=== PATIENT | female | born 1970 | race Caucasian/White ===

== ENCOUNTER → 2016-10-07 | Day surgery (SDC) | payer BC, OTHER ==
[~2016-10-07] VITALS: Ht 170.2 cm; Wt 73.9 kg
[~2016-10-07] MED LIST: BUPIVACAINE/EPIN 0.25% 30 ML VIAL As Ordered ONE; FLUO40CA PO; GLYCOPYRROLATE INJ 0.2 MG/ML 2 ML VIAL As Ordered ONE; KETOROLAC 30 MG/ML VIAL (J1885) IV PRN; KETOROLAC 60 MG/2 ML VIAL (J1885) As Ordered ONE; LIDOCAINE 2% INJ 100 MG/5 ML SDV (FOR ANES.) As Ordered ONE; LOW-TAB2 PO; LR 1,000 ML IV SCH; METOCLOPRAMIDE INJ 10MG/2ML VIAL (J2765) IV PRN; MIDAZOLAM INJ 2 MG/2 ML VIAL (J2250) As Ordered ONE; MORPHINE 2 MG/ML 1ML SYRINGE IV PRN; NEOSTIGMINE 1MG/ML 5 ML SYRINGE (J2710) As Ordered ONE; NORCO, ANEXSIA 5/325MG TABLET (HYDROcodone/ACETAMINOPHEN) PO PRN; ONDANSETRON 4MG/2ML VIAL (J2405) As Ordered ONE; ONDANSETRON 4MG/2ML VIAL (J2405) IV PRN; PROPOFOL 200 MG/20 ML VIAL As Ordered ONE; ceFAZolin 1GM INJ (J0690) As Ordered ONE; ePHEDrine SULFATE 25 MG/5 ML(5MG/ML) SYRINGE As Ordered ONE; fentaNYL 100 MCG/2 ML INJECTION (J3010) As Ordered ONE
[2016-10-07 09:41] LABS: CONTROL LINE HCG INT CTR LINE PRESENT
[2016-10-07] MEDS: fentaNYL 100 MCG/2 ML INJECTION (J3010) IV PRN ×2 (12:58→13:25)
[2016-10-07] MEDS: PERCOCET 5MG/325MG TAB PO PRN ×2 (13:03→13:25)
[2016-10-07 15:00] VITALS: BP 108/60
--- NOTE | 2016-10-25 15:29 | RO ---
DATE OF PROCEDURE: 10/07/2016 PREPROCEDURE DIAGNOSIS: Incisional hernia at the umbilicus. POSTPROCEDURE DIAGNOSIS: Incisional hernia and umbilical hernia. PROCEDURE: Repair of umbilical and incisional hernia. SURGEON: Ever Triplett MD ANESTHESIA: General endotracheal anesthesia. ESTIMATED BLOOD LOSS: Minimal. FLUIDS: Crystalloid. DESCRIPTION OF PROCEDURE: The patient was brought to the operating room and was given general anesthesia. After adequate anesthesia and preoperative antibiotics, the patient was prepped and draped in usual sterile fashion. Next, a supraumbilical incision was made over the supraumbilical site. The patient had a previous trocar placed at the supraumbilical site and at this site there seemed to be a hernia and indeed, after dissecting through skin, subcutaneous tissue right at the fascia, there was a small fascial defect with a significant amount of preperitoneal fat coming through this small fascial defect. After further dissection in this area that was just above the umbilicus, it was also apparent that there was a small fascial defect at the umbilicus itself. The fascial defect at the umbilicus was not significantly large i.e. 5-6 mm in size. The umbilicus was transected at its base/the umbilical hernia transected at its base and then closed with a jnoxri-[id number]-jgddh #0 Ethibond suture. Above this was the fascial defect of the incisional hernia. This was a transverse fascial defect and the edges were actually well-approximated, but the length of the fascial defect was about a centimeter. All of this significant amount of fatty tissue was eventually able to be placed back into the peritoneal cavity. I did not transect this fascial/preperitoneal fat or even omentum that was in this area and after reducing this, seeing how small the fascial defect was, I felt comfortable placing two [id number]-fm-[id number] #0 Ethibond sutures in this area to close the fascial defect quite nicely. This approximated quite nicely and then the dermis was brought together with #3-0 Vicryl, #4-0 Vicryl was used to approximate the skin. Steri-Strips and dry sterile dressing was applied. The patient was awakened, extubated, brought to the recovery room awake, alert, hemodynamically stable. Sponge and needle counts correct times two.
== END | disposition home or self-care (01) ==
LOC: M SDC 08:32
PROVIDERS: ATTEND Surgery
DX: K43.2 Incisional hernia without obstruction or gangrene (principal); K42.9 Umbilical hernia without obstruction or gangrene; F41.9 Anxiety disorder, unspecified; F32.9 Major depressive disorder, single episode, unspecified; Z79.899 Other long term (current) drug therapy
CPT/HCPCS: 36415; 49560; 49585; 84703; 88302; J0690; J1885; J2250; J2405; J2710; J3010

== ENCOUNTER → 2016-10-16 | Outpatient (REF) | payer OTHER ==
[~2016-10-16] MED LIST changes: -BUPIVACAINE/EPIN 0.25% 30 ML VIAL As Ordered ONE; -GLYCOPYRROLATE INJ 0.2 MG/ML 2 ML VIAL As Ordered ONE; -KETOROLAC 30 MG/ML VIAL (J1885) IV PRN; -KETOROLAC 60 MG/2 ML VIAL (J1885) As Ordered ONE; -LIDOCAINE 2% INJ 100 MG/5 ML SDV (FOR ANES.) As Ordered ONE; -LR 1,000 ML IV SCH; -METOCLOPRAMIDE INJ 10MG/2ML VIAL (J2765) IV PRN; -MIDAZOLAM INJ 2 MG/2 ML VIAL (J2250) As Ordered ONE; -MORPHINE 2 MG/ML 1ML SYRINGE IV PRN; -NEOSTIGMINE 1MG/ML 5 ML SYRINGE (J2710) As Ordered ONE; -NORCO, ANEXSIA 5/325MG TABLET (HYDROcodone/ACETAMINOPHEN) PO PRN; -ONDANSETRON 4MG/2ML VIAL (J2405) As Ordered ONE; -ONDANSETRON 4MG/2ML VIAL (J2405) IV PRN; -PROPOFOL 200 MG/20 ML VIAL As Ordered ONE; -ceFAZolin 1GM INJ (J0690) As Ordered ONE; -ePHEDrine SULFATE 25 MG/5 ML(5MG/ML) SYRINGE As Ordered ONE; -fentaNYL 100 MCG/2 ML INJECTION (J3010) As Ordered ONE
[2016-10-16 14:21] LABS: ANION GAP 7 MEQ/L (8-16); BLOOD UREA NITROGEN 12 MG/DL (7-18); CALCIUM LEVEL 8.6 MG/DL (8.5-10.1); CARBON DIOXIDE LEVEL 27 MEQ/L (21-32); CHLORIDE LEVEL 105 MEQ/L (98-107); CREATININE FOR GFR 0.78 MG/DL (0.55-1.02); GLOMERULAR FILTRATION RATE > 60.0 (>58); GLUCOSE, FASTING 83 MG/DL (70-105); POTASSIUM SERUM 3.9 MEQ/L (3.5-5.1); SODIUM LEVEL 139 MEQ/L (136-145)
[2016-10-16 14:42] LABS: BASO % 0.3 % (0.0-1.0); EOS % 1.2 % (0.0-3.0); LARGE UNSTAINED CELL # 0.1 K/mm3 (0.0-0.4); LYMPH # 1.3 K/mm3 (1.5-4.5); LYMPH % 28.9 % (24.0-44.0); MEAN CORPUSCULAR HEMOGLOBIN 28.7 pg (27.0-33.0); MEAN CORPUSCULAR HGB CONC 31.8 g/dl (32.0-36.5); MEAN CORPUSCULAR VOLUME 90.2 fl (80.0-96.0); MONO # 0.3 K/mm3 (0.0-0.8); MONO % 6.5 % (0.0-5.0); NEUTROPHILS # 2.7 K/mm3 (1.8-7.7); PLATELET COUNT, AUTOMATED 227 k/mm3 (150-450); WHITE BLOOD COUNT 4.5 K/mm3 (4.0-10.0)
== END ==
LOC: M LABDRAW1 13:58
PROVIDERS: ATTEND Physician Assistant
DX: R05 Cough (principal)

== ENCOUNTER → 2016-11-19 | Outpatient (CLI) | payer BC, OTHER ==
--- NOTE | 2016-11-21 10:59 | SLEEPCENT ---
DATE OF PROCEDURE: 11/19/2016 ORDERED BY: Ivy Tran Nocturnal polysomnography was performed for evaluation of sleep apnea syndrome symptoms in this patient with a history of snoring and daytime somnolence. 7 hours and 32 minutes of data were reviewed. There were 355 minutes of sleep identified. Sleep latency was normal at 13 minutes Rapid eye movement (REM) latency was mildly delayed at 126 minutes. Sleep architecture showed some fragmentation. Overall sleep efficiency was fairly good at 80.2%. There were two to three rapid eye movement (REM) periods appreciated. EKG showed a sinus rhythm with an average heart rate of 56 beats per minute. EEG showed normal wave forms for awake and sleep. There were some fluoxetine related eye movements noted. There were only 13 respiratory events identified of 10 seconds in duration or greater for an apnea-hypopnea index of 2.2. Snoring was noted and respiratory related arousals when arousals from snoring were included occurred 3.5 times per hour. There was some limb activity but arousals were infrequent at 3.4 times per hour and remaining measures of sleep physiology were normal. IMPRESSION Normal nocturnal polysomnography with snoring.
== END ==
LOC: M SLEEP 19:48
PROVIDERS: ATTEND Internal Medicine Pulmonary Disease
DX: G47.30 Sleep apnea, unspecified (principal)

== ENCOUNTER → 2017-04-16 | Outpatient (CLI) | payer BC ==
--- NOTE | 2017-04-16 13:28 | REPMRS ---
Patient History The patient states she had a clinical breast exam in 04/05 Patient had first child at age 32. Family history of prostate cancer in paternal grandfather at age 50 or over and breast cancer in paternal cousin under age 50. Taking hormonal contraceptives for 11 years. Digital Woman Screen Mammo: April 16, 2017 - Exam #: [id number] Bilateral CC and MLO view(s) were taken. Technologist: Edie Solorio, Technologist Prior study comparison: April 03, 2016, digital woman screen mammo performed at [facility]. December 29, 2014, digital woman screen mammo performed at [facility]. FINDINGS: The breast tissue is heterogeneously dense. This may lower the sensitivity of mammography. There has been no change in the appearance of the mammogram from the prior studies. There is a moderate amount of residual fibroglandular tissue which is fairly symmetric. There is no interval development of dominant mass, areas of architectural distortion, or clustered microcalcification typical of malignancy. ASSESSMENT: BI-RADS/ACR category 1 mammogram. Negative. Recommendation Routine screening mammogram in 1 year (for women over age 40). This mammogram was interpreted with the aid of an FDA-approved computer-aided dectection system. Electronically Signed By: Elroy Connolly MD 04/16/17 0036
== END ==
LOC: M WHC 08:36
PROVIDERS: ATTEND Nurse Practitioner Women's Health
DX: Z12.31 Encounter for screening mammogram for malignant neoplasm of breast (principal)

== ENCOUNTER → 2017-04-16 | Outpatient (REF) | payer OTHER | LOC: M SFHCWAGY 08:44 | PROVIDERS: ATTEND Nurse Practitioner Women's Health | DX: Z12.4 Encounter for screening for malignant neoplasm of cervix (principal) ==

== ENCOUNTER → 2017-10-06 | Outpatient (REF) | payer OTHER ==
[2017-10-06 16:25] LABS: BASO % 0.4 % (0.0-1.0); EOS # 0.1 10^3/uL (0.0-0.50); EOS % 1.3 % (0.0-3.0); HEMATOCRIT 37.8 % (36.0-47.0); HEMOGLOBIN 12.4 g/dl (12.0-16.0); IMMATURE GRANULOCYTE % 0.2 % (0-3.0); LYMPH # 1.6 10^3/uL (1.5-4.5); LYMPH % 33.9 % (24.0-44.0); MEAN CORPUSCULAR HEMOGLOBIN 29.3 pg (27.0-33.0); MEAN CORPUSCULAR HGB CONC 32.8 g/dl (32.0-36.5); MEAN CORPUSCULAR VOLUME 89.4 fl (80.0-96.0); MONO # 0.4 10^3/uL (0.0-0.8); MONO % 8.8 % (0.0-5.0); NEUTROPHILS # 2.6 10^3/uL (1.8-7.7); NEUTROPHILS % 55.4 % (36.0-66.0); PLATELET COUNT, AUTOMATED 240 10^3/uL (150-450); RED BLOOD COUNT 4.23 10^6/uL (4.00-5.40); RED CELL DISTRIBUTION WIDTH 12.8 % (11.5-14.5); WHITE BLOOD COUNT 4.8 10^3/uL (4.0-10.0)
[2017-10-06 16:42] LABS: ALBUMIN 3.6 GM/DL (3.2-5.2); ALBUMIN/GLOBULIN RATIO 1.16 (1.00-1.93); ALKALINE PHOSPHATASE 64 U/L (45-117); ALT/SGPT 19 U/L (12-78); ANION GAP 7 MEQ/L (8-16); AST/SGOT 16 U/L (7-37); BILIRUBIN,TOTAL 0.3 MG/DL (0.2-1.0); BLOOD UREA NITROGEN 14 MG/DL (7-18); CALCIUM LEVEL 8.5 MG/DL (8.5-10.1); CARBON DIOXIDE LEVEL 27 MEQ/L (21-32); CHLORIDE LEVEL 110 MEQ/L (98-107); CHOLESTEROL LEVEL 154 MG/DL (<200); CHOLESTEROL RISK RATIO 2.298 (<5); CREATININE FOR GFR 0.77 MG/DL (0.55-1.30); GLOMERULAR FILTRATION RATE > 60.0 (>58); GLUCOSE, FASTING 81 MG/DL (70-100); HDL CHOLESTEROL 67 MG/DL (>40); LDL CHOLESTEROL 75.2 MG/DL (<100); NON-HDL-C 87 MG/DL; POTASSIUM SERUM 4.1 MEQ/L (3.5-5.1); SODIUM LEVEL 144 MEQ/L (136-145); TOTAL PROTEIN 6.7 GM/DL (6.4-8.2); TRIGLYCERIDES LEVEL 59 MG/DL (<150)
== END ==
LOC: M SFHCCAPE 07:03
DX: Z13.6 Encounter for screening for cardiovascular disorders (principal); F32.1 Major depressive disorder, single episode, moderate

== ENCOUNTER → 2018-04-19 | Outpatient (CLI) | payer BC | LOC: M WHC 08:03 | DX: Z12.31 Encounter for screening mammogram for malignant neoplasm of breast (principal) | CPT/HCPCS: 77067 ==

== ENCOUNTER → 2018-04-19 | Outpatient (REF) | payer OTHER | LOC: M SFHCWAGY 08:42 | DX: Z12.4 Encounter for screening for malignant neoplasm of cervix (principal) ==

== ENCOUNTER → 2018-06-01 | Outpatient (REF) | payer OTHER ==
[2018-06-01 16:55] LABS: ALBUMIN 3.4 GM/DL (3.2-5.2); ALBUMIN/GLOBULIN RATIO 1.17 (1.00-1.93); ALKALINE PHOSPHATASE 57 U/L (45-117); ALT/SGPT 21 U/L (12-78); ANION GAP 6 MEQ/L (8-16); AST/SGOT 16 U/L (7-37); BILIRUBIN,TOTAL 0.4 MG/DL (0.2-1.0); BLOOD UREA NITROGEN 11 MG/DL (7-18); CALCIUM LEVEL 8.5 MG/DL (8.5-10.1); CARBON DIOXIDE LEVEL 27 MEQ/L (21-32); CHLORIDE LEVEL 111 MEQ/L (98-107); CREATININE FOR GFR 0.76 MG/DL (0.55-1.30); FREE T4 0.89 NG/DL (0.76-1.46); GLOMERULAR FILTRATION RATE > 60.0 (>58); GLUCOSE, FASTING 83 MG/DL (70-100); POTASSIUM SERUM 4.2 MEQ/L (3.5-5.1); SODIUM LEVEL 144 MEQ/L (136-145); TOTAL PROTEIN 6.3 GM/DL (6.4-8.2)
== END ==
LOC: M SFHCCAPE 07:20
DX: R55 Syncope and collapse (principal)

== ENCOUNTER → 2018-08-14 | Outpatient (REF) | payer OTHER ==
[~2018-08-14] MED LIST changes: +LOW-1TAB2 PO; -LOW-TAB2 PO
[2018-08-14 17:58] LABS: INFLUENZA A AMPLIFICATION POSITIVE (NEGATIVE); INFLUENZA B AMPLIFICATION NEGATIVE (NEGATIVE)
== END ==
LOC: M LAB REF 08:28
PROVIDERS: ATTEND Nurse Practitioner Family
DX: J11.1 Influenza due to unidentified influenza virus with other respiratory manifestations (principal)

== ENCOUNTER → 2018-09-29 | Outpatient (REF) | payer OTHER ==
[2018-09-29 18:10] LABS: BLOOD UREA NITROGEN 11 MG/DL (7-18); CREATININE FOR GFR 0.72 MG/DL (0.55-1.30); GLOMERULAR FILTRATION RATE > 60.0 (>58)
== END ==
LOC: M SFHCCAPE 11:15
PROVIDERS: ATTEND Physician Assistant
DX: R05 Cough (principal)

== ENCOUNTER → 2018-10-11 | Outpatient (CLI) | payer BC, OTHER ==
[~2018-10-11] MED LIST changes: +ISOVUE-370 76% 125ML VIAL (Q9967 PER ML) As Ordered ONE
--- NOTE | 2018-10-11 15:47 | REP ---
Clinical: Chronic cough. Technique: Axial contrast enhanced images from the thoracic inlet to the upper abdomen with coronal and sagittal re-formations using 100 ml Isovue 370 intravenous contrast material. Comparison: 10/16/2016. Findings: The the bilateral lung davis are relatively well aerated, symmetric and essentially clear. No consolidation or pleural effusion. No pneumothorax. No significant evidence for chronic interstitial disease noted. No obvious nodule or mass lesion. No axillary, hilar, or mediastinal adenopathy. A small amount of periaortic soft tissue within the mediastinum (images 36-43) cannot be excluded and is nonspecific. Impression: 1. No evidence for acute or chronic pleuroparenchymal process. No adenopathy. 2. Small amount of periaortic soft tissue within the mediastinum cannot be excluded. Follow-up examination in 3-6 months may be warranted. Electronically Signed by Kermit Patino MD 10/11/2018 03:39 P
== END ==
LOC: M RAD 14:46
PROVIDERS: ATTEND Physician Assistant
DX: R91.8 Other nonspecific abnormal finding of lung field (principal)
CPT/HCPCS: 71260; Q9967

== ENCOUNTER → 2019-02-15 | Outpatient (REF) | payer OTHER ==
[~2019-02-15] MED LIST changes: -ISOVUE-370 76% 125ML VIAL (Q9967 PER ML) As Ordered ONE
[2019-02-16 11:43] LABS: RUBELLA IgG QUALITATIVE IMMUNE (IMMUNE)
[2019-02-17 08:06] LABS: MUMPS VIRUS IgG ANTIBODY <9.0 AU/mL (Immune >10.9); RUBEOLA IgG ANTIBODY <25.0 AU/mL (Immune >29.9)
== END ==
LOC: M SFHCCAPE 07:03
PROVIDERS: ATTEND Physician Assistant
DX: Z78.9 Other specified health status (principal)

== ENCOUNTER → 2019-02-18 | Outpatient (CLI) | payer BC, OTHER ==
[~2019-02-18] MED LIST changes: +ISOVUE-370 76% 100ML VIAL (Q9967) As Ordered ONE
--- NOTE | 2019-02-18 11:12 | REP ---
Clinical: Chronic cough. Technique: Axial contrast enhanced images from the thoracic inlet to the upper abdomen with coronal and sagittal re-formations using 100 ml Isovue 370 intravenous contrast material. Comparison: 10/11/2018. Findings: Bilateral lung davis are relatively well aerated and essentially clear. Very minimal posterior dependent changes are appreciated. No consolidation, significant nodule, or mass lesion. Tracheobronchial tree is patent. No adenopathy. Mediastinum demonstrates normal thoracic aorta, pulmonary vasculature and heart/pericardium. Subtle increased soft tissue in the periaortic middle mediastinum is unchanged and likely represent small amount of residual thymic tissue. Musculoskeletal structures are intact. Limited upper abdomen demonstrates normal bilateral adrenal glands. Impression: 1. No acute mediastinal or pleuroparenchymal process appreciated. 2. Previously noted subtle increased soft tissue in the middle mediastinum is unchanged and may represent small amount of residual thymic tissue. No associated discrete mediastinal or hilar adenopathy. Electronically Signed by Kermit Patino MD 02/18/2019 11:03 A
== END ==
LOC: M RAD 10:23
PROVIDERS: ATTEND Physician Assistant
DX: R05 Cough (principal); R93.89 Abnormal findings on diagnostic imaging of other specified body structures
CPT/HCPCS: 71260; Q9967

== ENCOUNTER → 2019-03-15 | Outpatient (REF) | payer OTHER ==
[~2019-03-15] MED LIST changes: -ISOVUE-370 76% 100ML VIAL (Q9967) As Ordered ONE
[2019-03-15 16:47] LABS: BASO % 0.5 % (0.0-1.0); EOS # 0.1 10^3/uL (0.0-0.50); EOS % 1.7 % (0.0-3.0); HEMATOCRIT 38.8 % (36.0-47.0); HEMOGLOBIN 12.6 g/dl (12.0-15.5); LYMPH # 1.4 10^3/uL (1.5-4.5); LYMPH % 33.7 % (24.0-44.0); MEAN CORPUSCULAR HGB CONC 32.5 g/dl (32.0-36.5); MEAN CORPUSCULAR VOLUME 89.2 fl (80.0-96.0); MONO # 0.4 10^3/uL (0.0-0.8); MONO % 9.2 % (0.0-5.0); NEUTROPHILS # 2.2 10^3/uL (1.8-7.7); NEUTROPHILS % 54.7 % (36.0-66.0); PLATELET COUNT, AUTOMATED 276 10^3/uL (150-450); RED BLOOD COUNT 4.35 10^6/uL (4.00-5.40)
[2019-03-15 17:00] LABS: ALBUMIN 3.7 GM/DL (3.2-5.2); ALT/SGPT 20 U/L (12-78); BILIRUBIN,TOTAL 0.4 MG/DL (0.2-1.0); BLOOD UREA NITROGEN 11 MG/DL (7-18); CALCIUM LEVEL 8.7 MG/DL (8.5-10.1); CARBON DIOXIDE LEVEL 25 MEQ/L (21-32); CHLORIDE LEVEL 107 MEQ/L (98-107); CREATININE FOR GFR 0.76 MG/DL (0.55-1.30); FREE T4 0.92 NG/DL (0.76-1.46); GLOMERULAR FILTRATION RATE > 60.0 (>58); GLUCOSE, FASTING 78 MG/DL (70-100); LDH LACTATE DEHYDROGENASE 188 U/L (84-246); POTASSIUM SERUM 4.1 MEQ/L (3.5-5.1); SODIUM LEVEL 141 MEQ/L (136-145); TOTAL PROTEIN 6.8 GM/DL (6.4-8.2)
[2019-03-19 00:06] LABS: ACETYLCHOLINE RCPTOR BINDING A < 0.03 nmol/L (0.00-0.24); HCG SERUM TUMOR MARKER QUANT < 1 mIU/mL (.)
== END ==
LOC: M SFHCCAPE 10:27
PROVIDERS: ATTEND Physician Assistant
DX: R68.84 Jaw pain (principal)

== ENCOUNTER → 2019-03-22 | Outpatient (CLI) | payer BC, OTHER ==
[~2019-03-22] MED LIST changes: +ISOVUE-370 76% 100ML VIAL (Q9967) As Ordered ONE
--- NOTE | 2019-03-22 08:56 | REP ---
Clinical: Abnormal thyroid examination. Technique: Real time jimenez scale and color evaluation using linear high frequency transducer. Findings: The thyroid gland is normal in contour, size, echogenicity, and overall appearance. No cystic or nodular abnormalities are appreciated. Color evaluation demonstrates normal symmetric vascularity to the thyroid gland. Right lobe measures 5.1 x 1.9 x 1.6 cm. Isthmus measures 2 mm in width. Left lobe measures 4.4 x 1.5 x 1.7 cm. Impression: Normal thyroid ultrasound. Electronically Signed by Kermit Patino MD 03/22/2019 08:47 A
--- NOTE | 2019-03-22 11:16 | REP ---
SOFT-TISSUE NECK CT STUDY WITH IV CONTRAST: HISTORY: Trauma pain. Abnormal thyroid exam. CT CONTRAST DOSE: 75 mL of intravenous Isovue [address] FINDINGS: Preliminary digital cross roller radiograph is unremarkable. There is a small mucous retention cyst along the lateral wall of the left maxillary sinus. The visualized paranasal sinuses are otherwise clear. No bony destructive lesion is appreciated. There is some irregularity of the cortical surface of the mandibular condyle head on the right side. The bony mandible is otherwise unremarkable. Parotid glands and submandibular glands are normal and symmetric. There is no visible neck mass or adenopathy. Thyroid lobes are homogeneous and normal in size. No vascular abnormality is observed. The lung apices are clear. IMPRESSION: Small mucous retention cyst left maxillary sinus. Irregular sclerotic remodeling changes in the condylar head on the right side. Otherwise negative. Electronically Signed by Mj Galeano MD 03/22/2019 01:43 P
--- NOTE | 2019-03-22 11:17 | REP ---
MAXILLOFACIAL CT STUDY WITH IV CONTRAST: HISTORY: Jaw pain. Abnormal chest CT. Facial pain and neck fullness. CT CONTRAST DOSE: 75 mL of intravenous Isovue [address] FINDINGS: There is a 1.1 cm mucous retention cyst in the lateral wall of the left maxillary sinus. The paranasal sinuses are otherwise clear. The bony mandible is intact. No bony destructive lesion is seen. There are irregular cortical changes in the anterior aspect of the mandibular condyle on the right consistent with some degenerative change. The nasal septum is in the midline. The ostiomeatal complexes are patent bilaterally. No intraorbital abnormality is seen. Visualized intracranial structures are unremarkable. 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 Small left maxillary sinus mucous retention cyst. Otherwise negative. Electronically Signed by Mj Galeano MD 03/22/2019 01:44 P
--- NOTE | 2019-03-22 11:17 | REP ---
Temporomandibular joint MRI study without contrast: History: Right-sided jaw pain. Technique: Axial, coronal and sagittal images are acquired with T1 and T2-weighted scanning in the usual fashion. Open and close sagittal images are included bilaterally. Step wedge cine views are obtained. Comparison is made with CT study of the neck and maxillofacial bones from this date. MRI findings: There is decreased opening translation of the right mandibular condyle. Opening translation on the left is normal. There is no significant joint effusion. There is evidence of bilateral anterior meniscal dislocation. On the left there is capture of the meniscus with opening. On the right the meniscus remains anterior to the condyle. On the right there is some flattening of the anterior surface of the bony condyle and there is evidence of marrow edema in the condyle itself on the right. Impression: Decreased opening translation on the right with marrow edema and some bony remodeling of the mandibular condyle on the right. There is evidence of bilateral anterior meniscal dislocation. Meniscal capture is noted on the left but not on the right with opening. Electronically Signed by Mj Galeano MD 03/22/2019 01:44 P
== END ==
LOC: M RAD 06:27
PROVIDERS: ATTEND Physician Assistant
DX: R93.89 Abnormal findings on diagnostic imaging of other specified body structures (principal); R68.84 Jaw pain; R94.6 Abnormal results of thyroid function studies; R22.1 Localized swelling, mass and lump, neck; R51 Headache
CPT/HCPCS: 70336; 70487; 70491; 76536; Q9967

== ENCOUNTER → 2019-04-20 | Outpatient (CLI) | payer BC ==
[~2019-04-20] MED LIST changes: -ISOVUE-370 76% 100ML VIAL (Q9967) As Ordered ONE
--- NOTE | 2019-04-20 09:58 | REPMRS ---
Patient History The patient states she had a clinical breast exam in 04/2019. Patient had first child at age 32. Family history of prostate cancer at age 50 or over in paternal grandfather. Taking hormonal contraceptives for 13 years. Digital Woman Screen Mammo: April 20, 2019 - Exam #: [id number] Bilateral CC and MLO view(s) were taken. Technologist: Marley Moncada, Technologist Prior study comparison: April 19, 2018, bilateral digital woman screen mammo performed at [facility]. April 16, 2017, digital woman screen mammo performed at [facility]. April 03, 2016, digital woman screen mammo performed at [facility]. FINDINGS: The breast tissue is heterogeneously dense. This may lower the sensitivity of mammography. There is a moderate amount of heterogeneously dense fibroglandular tissue which is fairly symmetric. There is no interval development of dominant mass, architectural distortion, or grouped microcalcification typical of malignancy. There has been no change in the appearance of the mammogram from the prior studies. 3-D tomosynthesis shows no additional findings. Assessment: BI-RADS/ACR category 1 mammogram. Negative Mammogram. Recommendation Routine screening mammogram of both breasts in 1 year (for women over age 40). This patient's Lifetime Breast Cancer RIsk is estimated at 13.5 %. This mammogram was interpreted with the aid of an FDA-approved computer-aided dectection system. Electronically Signed By: Tano Galeano MD 04/20/19 0958
== END ==
LOC: M WHC 08:18
PROVIDERS: ATTEND Nurse Practitioner Women's Health
DX: Z12.31 Encounter for screening mammogram for malignant neoplasm of breast (principal)

== ENCOUNTER → 2019-08-25 | Outpatient (CLI) | payer BC, OTHER ==
--- NOTE | 2019-08-25 19:57 | REP ---
T of the chest without IV contrast: Comparisons are 02/18/2019 with IV contrast and 10/11/2018 with IV contrast. On the comparison studies there was an increased volume of soft tissue density in the anterior mediastinum the tip in the location of the thymus gland. On the study today this volume of soft tissue density has decreased. This may represent resolving thymic rebound. No other mediastinal mass or adenopathy are identified. There is no axillary adenopathy. In the absence of IV contrast the study is insensitive for hilar adenopathy. There are no infiltrates or pleural effusions. There are no lung masses or nodules. The unenhanced thoracic aorta is unremarkable. Cardiac size is normal. There is no pericardial effusion. The visualized upper abdominal contents are unremarkable. Impression: The volume of soft tissue density in the anterior mediastinum has decreased from the comparison studies. This may represent resolving thymic rebound. Electronically Signed by Elroy Harris MD 08/25/2019 07:48 P
== END ==
LOC: M RAD 13:32
PROVIDERS: ATTEND Physician Assistant
DX: R91.8 Other nonspecific abnormal finding of lung field (principal)

== ENCOUNTER → 2020-02-21 | Outpatient (CLI) | payer BC, OTHER ==
--- NOTE | 2020-04-12 10:16 | REP ---
CT OF THE CHEST WITHOUT CONTRAST: HISTORY: Other nonspecific abnormal finding of the lung field. This report was delayed due to a malware attack on this facility. COMPARISON: CT studies are reviewed from 08/25/19 and 02/18/19 as well as 10/11/18. FINDINGS: The previous examination showed increased soft tissue density in the anterior mediastinum consistent with thymic tissue. Most recently, this has decreased in overall volume. Today's CT images demonstrate some residual thymic tissue, minimal in amount. There is a small quantity of fluid in the pericardial recess. No significant pericardial effusion is seen. No pleural effusion is noted. No mediastinal mass or adenopathy is observed. The thyroid lobes are normal and symmetric. The lung davis are essentially clear. There is granulomatous calcification peripherally in the right upper lobe on page 42 of 120 in series 201 of today's study. No significant pulmonary nodule or lung mass lesion is observed. There are 2 small hepatic cysts again noted. Normal adrenal glands are seen. IMPRESSION: Findings consistent with mild residual thymic tissue or thymic hyperplasia. No thymic mass lesion is seen. No evidence of progression. Otherwise, no acute disease. MTDD
== END ==
LOC: M RAD 07:12
PROVIDERS: ATTEND Physician Assistant
DX: R91.8 Other nonspecific abnormal finding of lung field (principal)

== ENCOUNTER → 2020-04-23 | Outpatient (CLI) | payer BC ==
--- NOTE | 2020-04-23 09:19 | REPMRS ---
Patient History The patient states she had a clinical breast exam in April 2020.Family history of prostate cancer at age 50 or over in paternal grandfather. Taking hormonal contraceptives for 13 years. 3D TOMOSYNTHESIS WAS PERFORMED. The [facility] lifetime risk for breast cancer is 13.3%. JENNNATIVIDADAddis RATNA Esteban. Digital Woman Screen Mammo: April 23, 2020 - Exam #: [id number] Bilateral CC and MLO view(s) were taken. Technologist: Patsy Woodward, Technologist Prior study comparison: April 20, 2019, bilateral digital woman screen mammo performed at [facility]. April 19, 2018, bilateral digital woman screen mammo performed at [facility]. FINDINGS: The breast tissue is heterogeneously dense. This may lower the sensitivity of mammography. There has been no change in the appearance of the mammogram from the prior studies. There is a moderate amount of residual fibroglandular tissue which is fairly symmetric. There is no interval development of dominant mass, areas of architectural distortion, or clustered microcalcification typical of malignancy. Assessment: BI-RADS/ACR category 1 mammogram. Negative Mammogram. Recommendation Routine screening mammogram in 1 year (for women over age 40). This mammogram was interpreted with the aid of an FDA-approved computer-aided dectection system. Electronically Signed By: Elroy Connolly MD 04/23/20 0919
== END ==
LOC: M WHC 08:21
PROVIDERS: ATTEND Nurse Practitioner Women's Health
DX: Z12.31 Encounter for screening mammogram for malignant neoplasm of breast (principal); Z79.3 Long term (current) use of hormonal contraceptives

== ENCOUNTER → 2021-03-11 | Outpatient (REF) | payer OTHER ==
[2021-03-11 16:13] LABS: BASO % 0.2 % (0.0-1.0); EOS # 0.1 10^3/uL (0.0-0.5); EOS % 1.3 % (0.0-3.0); HEMATOCRIT 39.5 % (36.0-47.0); HEMOGLOBIN 13.2 g/dl (12.0-15.5); LYMPH # 1.7 10^3/uL (1.5-5.0); LYMPH % 35.6 % (24.0-44.0); MEAN CORPUSCULAR HEMOGLOBIN 30.1 pg (27.0-33.0); MEAN CORPUSCULAR HGB CONC 33.4 g/dl (32.0-36.5); MEAN CORPUSCULAR VOLUME 90.2 fl (80.0-96.0); MONO # 0.4 10^3/uL (0.0-0.8); MONO % 9.1 % (2.0-8.0); NEUTROPHILS # 2.5 10^3/uL (1.5-8.5); NEUTROPHILS % 53.6 % (36.0-66.0); PLATELET COUNT, AUTOMATED 251 10^3/uL (150-450); RED BLOOD COUNT 4.38 10^6/uL (4.00-5.40); WHITE BLOOD COUNT 4.6 10^3/uL (4.0-10.0)
[2021-03-11 16:25] LABS: ALBUMIN 3.5 GM/DL (3.2-5.2); ALT/SGPT 20 U/L (12-78); BILIRUBIN,TOTAL 0.6 MG/DL (0.2-1.0); BLOOD UREA NITROGEN 10 MG/DL (7-18); CALCIUM LEVEL 8.4 MG/DL (8.5-10.1); CARBON DIOXIDE LEVEL 27 MEQ/L (21-32); CHLORIDE LEVEL 111 MEQ/L (98-107); CHOLESTEROL LEVEL 151 MG/DL (<200); CHOLESTEROL RISK RATIO 2.603 (<5); CREATININE FOR GFR 0.85 MG/DL (0.55-1.30); GLOMERULAR FILTRATION RATE > 60.0 (>58); GLUCOSE, FASTING 81 MG/DL (70-100); HDL CHOLESTEROL 58 MG/DL (>40); LDL CHOLESTEROL 80 MG/DL (<100); NON-HDL-C 93 MG/DL; SODIUM LEVEL 142 MEQ/L (136-145); TOTAL 25(OH) VITAMIN D 42.2 NG/ML (30.0-100.0); TOTAL PROTEIN 6.5 GM/DL (6.4-8.2); TRIGLYCERIDES LEVEL 64 MG/DL (<150)
== END ==
LOC: M SFHCCAPE 07:20
PROVIDERS: ATTEND Physician Assistant
DX: Z00.00 Encounter for general adult medical examination without abnormal findings (principal)

== ENCOUNTER → 2021-07-03 | Outpatient (CLI) | payer BC, OTHER ==
--- NOTE | 2021-07-03 11:13 | REPMRS ---
Patient History The patient states she had a clinical breast exam in 06/2021. Patient had first child at age 32. Family history of prostate cancer at age 50 or over in paternal grandfather. Taking hormonal contraceptives for 14 years. Patient states no breast complaints today. Patient has signed MRS History Sheet. Patient states she has not been vaccinated at this time. Digital Woman Screen Mammo: July 03, 2021 - Exam #: [id number] Bilateral CC and MLO view(s) were taken. Technologist: Marley Moncada, Technologist Prior study comparison: April 23, 2020, bilateral digital woman screen mammo performed at [facility]. April 20, 2019, bilateral digital woman screen mammo performed at [facility]. FINDINGS: The breast tissue is heterogeneously dense. This may lower the sensitivity of mammography. Screening. Digital screening (2D) mammography was performed bilaterally in the CC and MLO projections. Additionally, breast tomosynthesis (3D mammography) was performed bilaterally in the CC and MLO projections. Todays exam was compared to the prior exam/exams. By history, the patient has no complaints of a palpable breast abnormality or other significant breast complaints. The breasts are unchanged in size and shape. Once again, dense heterogenous fibroglandular elements are seen bilaterally in a stable appearing pattern but to such a degree that the sensitivity of the mammogram in detecting cancer is decreased.There are no mercedes-soft tissue densities or spiculated masses. There is no internal architectural distortion. There are no suspicious mercedes-calcific clusters. Skin thickening or nipple retraction is not present. IMPRESSION: BI-RADS Category 2- Benign Findings. There is no evidence of malignant alteration of the breasts. Followup examination recommended in one year. The Volpara volumetric breast density category is C, the breasts are heterogenously dense which may obscure small masses. This mammogram was read with the assistance of [employer],an FDA approved computer aided detection system for mammography. The lifetime Tyrer-Cuzick score is 13. 1 % Negative x-ray reports should not delay surgical consultation if a dominant or clinically suspicious mass is present. Not all breast cancers can be identified by mammography. Therefore, we recommend that you continue to perform regular breast self-examination and physical examination and then promptly contact your physician of any concerns or changes. Adenosis and dense breasts may obscure an underlying neoplasm. Assessment: BI-RADS/ACR category 2 mammogram. Benign Findings. Recommendation Routine screening mammogram of both breasts in 1 year. Electronically Signed By: Shawn Noel DO 07/03/21 1111
== END ==
LOC: M WHC 07:38
PROVIDERS: ATTEND Nurse Practitioner Women's Health
DX: Z12.31 Encounter for screening mammogram for malignant neoplasm of breast (principal); R92.2 Inconclusive mammogram

== ENCOUNTER → 2021-07-03 | Outpatient (REF) | payer OTHER | LOC: M SFHCWAGY 13:03 | PROVIDERS: ATTEND Nurse Practitioner Women's Health | DX: Z12.4 Encounter for screening for malignant neoplasm of cervix (principal) | CPT/HCPCS: 87624; G0123 ==

== ENCOUNTER → 2022-05-27 | Outpatient (REF) | payer OTHER ==
[2022-05-27 17:55] LABS: BASO % 0.4 % (0.0-1.0); EOS # 0.1 10^3/uL (0.0-0.5); EOS % 1.7 % (0.0-3.0); HEMATOCRIT 38.8 % (36.0-47.0); HEMOGLOBIN 12.5 g/dl (12.0-15.5); LYMPH # 1.7 10^3/uL (1.5-5.0); LYMPH % 31.8 % (24.0-44.0); MEAN CORPUSCULAR HEMOGLOBIN 29.1 pg (27.0-33.0); MEAN CORPUSCULAR HGB CONC 32.2 g/dl (32.0-36.5); MEAN CORPUSCULAR VOLUME 90.2 fl (80.0-96.0); MONO # 0.4 10^3/uL (0.0-0.8); MONO % 7.7 % (2.0-8.0); NEUTROPHILS # 3.1 10^3/uL (1.5-8.5); PLATELET COUNT, AUTOMATED 264 10^3/uL (150-450); WHITE BLOOD COUNT 5.3 10^3/uL (4.0-10.0)
[2022-05-27 18:11] LABS: ALBUMIN 3.5 GM/DL (3.2-5.2); ALT/SGPT 19 U/L (12-78); BILIRUBIN,TOTAL 0.2 MG/DL (0.2-1.0); BLOOD UREA NITROGEN 14 MG/DL (7-18); C REACTIVE PROTEIN QUANTITATIV 0.33 MG/DL (0.00-0.30); CALCIUM LEVEL 9.4 MG/DL (8.5-10.1); CARBON DIOXIDE LEVEL 25 MEQ/L (21-32); CHLORIDE LEVEL 106 MEQ/L (98-107); FREE T4 0.76 NG/DL (0.76-1.46); GLOMERULAR FILTRATION RATE > 60.0 (>51); GLUCOSE, FASTING 81 MG/DL (70-100); SODIUM LEVEL 137 MEQ/L (136-145); TOTAL PROTEIN 6.7 GM/DL (6.4-8.2)
[2022-05-27 18:43] LABS: VITAMIN B12 LEVEL 335 PG/ML
[2022-05-27 18:44] LABS: FOLATE 15.3 NG/ML
[2022-05-27 18:49] LABS: APPEARANCE, URINE MANUAL CLEAR (CLEAR); BILIRUBIN, URINE MANUAL NEGATIVE (NEGATIVE); BLOOD URINE MANUAL NEGATIVE (NEGATIVE); COLOR, URINE MANUAL YELLOW (YELLOW); GLUCOSE, URINE (UA) MANUAL NEGATIVE (NEGATIVE); KETONE, URINE MANUAL NEGATIVE (NEGATIVE); LEUKOCYTE ESTERASE, URINE MAN NEGATIVE (NEGATIVE); NITRITE, URINE MANUAL NEGATIVE (NEGATIVE); PROTEIN, URINE MANUAL NEGATIVE (NEGATIVE); UROBILINOGEN, URINE MANUAL NORMAL (NORMAL)
[2022-05-27 19:20] LABS: ERYTHROCYTE SEDIMENTATION RATE 7 mm/hr (0-30)
[2022-06-02 21:07] LABS: HOMOCYST(E)INE SERUM 6.8 umol/L (0.0-14.5); Methylmalonic Acid 182 nmol/L (0-378)
== END ==
LOC: M SFHCCAPE 13:46
PROVIDERS: ATTEND Physician Assistant
DX: R53.81 Other malaise (principal); R53.83 Other fatigue

== ENCOUNTER → 2022-05-29 | Outpatient (CLI) | payer BC, OTHER | LOC: M CLY 14:33 | PROVIDERS: ATTEND Physician Assistant | DX: R53.81 Other malaise (principal); R53.83 Other fatigue ==

== ENCOUNTER → 2022-06-02 | Outpatient (REF) | payer OTHER ==
[2022-06-02 18:27] LABS: CK-MB VALUE MASS 1.7 NG/ML (<3.6); MB/CK RELATIVE INDEX 1.37 (< OR =4)
== END ==
LOC: M SFHCCAPE 11:24
PROVIDERS: ATTEND Physician Assistant
DX: R07.89 Other chest pain (principal); R91.8 Other nonspecific abnormal finding of lung field

== ENCOUNTER → 2022-06-06 | Outpatient (CLI) | payer BC, OTHER ==
[~2022-06-06] MED LIST changes: +ISOVUE-370 76% 100ML VIAL As Ordered ONE
== END ==
LOC: M RAD 12:37
PROVIDERS: ATTEND Physician Assistant
DX: R07.89 Other chest pain (principal); R79.89 Other specified abnormal findings of blood chemistry; R93.89 Abnormal findings on diagnostic imaging of other specified body structures

== ENCOUNTER → 2022-07-08 | Outpatient (CLI) | payer BC, OTHER ==
[~2022-07-08] MED LIST changes: -ISOVUE-370 76% 100ML VIAL As Ordered ONE
== END ==
LOC: M WHC 06:58
PROVIDERS: ATTEND Physician Assistant
DX: Z12.31 Encounter for screening mammogram for malignant neoplasm of breast (principal)

== ENCOUNTER → 2022-10-18 | Outpatient (CLI) | payer BC, OTHER | LOC: M RAD 16:19 | PROVIDERS: ATTEND Physician Assistant Medical | DX: S69.91XA Unspecified injury of right wrist, hand and finger(s), initial encounter (principal); X58.XXXA Exposure to other specified factors, initial encounter; Y92.9 Unspecified place or not applicable; Y93.9 Activity, unspecified; Y99.9 Unspecified external cause status ==

== ENCOUNTER → 2022-11-07 | Outpatient (REF) | payer OTHER | LOC: M PLALAB 08:38 | PROVIDERS: ATTEND Nurse Practitioner Family | DX: Z12.4 Encounter for screening for malignant neoplasm of cervix (principal) ==

== ENCOUNTER → 2023-08-31 | Outpatient (CLI) | payer BC, OTHER | LOC: M RAD 18:40 | PROVIDERS: ATTEND Physician Assistant Medical | DX: M79.672 Pain in left foot (principal) ==

== ENCOUNTER → 2023-12-30 | Outpatient (CLI) | payer BC | LOC: M WHC 08:33 | PROVIDERS: ATTEND Nurse Practitioner Family | DX: Z12.31 Encounter for screening mammogram for malignant neoplasm of breast (principal); R92.333 Mammographic heterogeneous density, bilateral breasts ==

== ENCOUNTER → 2023-12-30 | Outpatient (REF) | payer BC ==
[2024-01-01 13:42] LABS: HPV APTIMA Not Detected (Not Detected)
== END ==
LOC: M SFHCWAGY 12:24
PROVIDERS: ATTEND Nurse Practitioner Family
DX: Z12.4 Encounter for screening for malignant neoplasm of cervix (principal); Z77.9 Other contact with and (suspected) exposures hazardous to health
CPT/HCPCS: 87624; G0123

== ENCOUNTER → 2024-11-24 | Outpatient (CLI) | payer BC ==
[2024-11-24 11:02] LABS: APPEARANCE, URINE CLEAR (CLEAR); BACTERIA, URINE AUTO NEGATIVE (NEGATIVE); BILIRUBIN, URINE AUTO NEGATIVE (NEGATIVE); BLOOD, URINE BLOOD NEGATIVE (NEGATIVE); COLOR, URINE STRAW (YELLOW); GLUCOSE, URINE (UA) AUTO NEGATIVE (NEGATIVE); KETONE, URINE AUTO NEGATIVE (NEGATIVE); LEUKOCYTE ESTERASE, URINE AUTO NEGATIVE (NEGATIVE); NITRITE, URINE AUTO NEGATIVE (NEGATIVE); PROTEIN, URINE AUTO NEGATIVE (NEGATIVE); RBC, URINE AUTO 0 /HPF (0-3); SPECIFIC GRAVITY URINE AUTO 1.009 (1.002-1.035); SQUAMOUS EPITHELIAL CELL UR AU 0 /HPF (0-6); UROBILINOGEN, URINE AUTO 0.2 mg/dL (0.0-2.0); WBC, URINE AUTO 0 /HPF (0-3)
[2024-11-24 11:03] LABS: BASO % 0.4 % (0.0-1.0); EOS # 0.1 10^3/uL (0.0-0.5); EOS % 1.6 % (0.0-3.0); HEMATOCRIT 39.4 % (36.0-47.0); HEMOGLOBIN 12.9 g/dl (12.0-15.5); LYMPH # 1.8 10^3/uL (1.5-5.0); LYMPH % 34.8 % (24.0-44.0); MEAN CORPUSCULAR HEMOGLOBIN 28.7 pg (27.0-33.0); MEAN CORPUSCULAR HGB CONC 32.7 g/dl (32.0-36.5); MEAN CORPUSCULAR VOLUME 87.6 fl (80.0-96.0); MONO # 0.4 10^3/uL (0.0-0.8); MONO % 8.2 % (2.0-8.0); NEUTROPHILS # 2.8 10^3/uL (1.5-8.5); NEUTROPHILS % 54.6 % (36.0-66.0); PLATELET COUNT, AUTOMATED 223 10^3/uL (150-450)
[2024-11-24 11:19] LABS: HEMOGLOBIN A1c 5.6 % (4.0-6.0)
[2024-11-24 11:38] LABS: ALKALINE PHOSPHATASE 96 U/L (35-104); ALT/SGPT 25 U/L (7.0-40); AST/SGOT 19 U/L (<34); BILIRUBIN,TOTAL 0.6 MG/DL (0.3-1.2); BLOOD UREA NITROGEN 15 MG/DL (9-23); CALCIUM LEVEL 9.4 MG/DL (8.5-10.1); CARBON DIOXIDE LEVEL 32 MMOL/L (20-31); CHLORIDE LEVEL 106 MMOL/L (98-107); CHOLESTEROL LEVEL 209 MG/DL (<200); CHOLESTEROL RISK RATIO 2.45 (<5); CREATININE FOR GFR 0.69 MG/DL (0.55-1.30); GLOMERULAR FILTRATION RATE > 90.0 (>51); GLUCOSE, FASTING 83 MG/DL (60-100); LDL CHOLESTEROL 111.8 MG/DL (<100); POTASSIUM SERUM 3.8 MMOL/L (3.5-5.1); SODIUM LEVEL 144 MMOL/L (136-145); TRIGLYCERIDES LEVEL 61 MG/DL (<150)
[2024-11-24 11:40] LABS: TOTAL 25(OH) VITAMIN D 26.8 NG/ML (20.0-100.0)
== END ==
LOC: M RAD 09:54
PROVIDERS: ATTEND Internal Medicine
DX: Z00.00 Encounter for general adult medical examination without abnormal findings (principal); M25.531 Pain in right wrist

== ENCOUNTER 2025-02-16 07:20 | Day surgery (SDC) | payer BC ==
[~2025-02-16] VITALS: Ht 170.2 cm; Wt 77.9 kg
[~2025-02-16 07:20] MED LIST changes: +LEXA1TAB2 PO; +LIDOCAINE 2% 100 MG/5 ML SDV (FOR ANES.) As Ordered ONE
[2025-02-16 09:18] VITALS: TEMP 97.1
[2025-02-16 09:33] VITALS: BP 101/56; O2SAT 99
== END 2025-02-16 09:45 | disposition home or self-care (01) ==
LOC: M OPP 07:20
PROVIDERS: ATTEND Surgery
DX: Z12.11 Encounter for screening for malignant neoplasm of colon (principal); Q43.8 Other specified congenital malformations of intestine; Z91.048 Other nonmedicinal substance allergy status; Z79.899 Other long term (current) drug therapy